=== PATIENT | female | born 1985 | race Caucasian/White ===

== ENCOUNTER 2018-02-15 01:02 | Inpatient (IN) | payer OTHER ==
[2018-02-15] MEDS ORDERED: ONDANSETRON 4 MG/2 ML VIAL IVPUSH ONE (01:29)
[2018-02-15] MEDS ORDERED: morphine CARPU-JECT 4 MG/1 ML DISP.SYRIN IVPUSH ONE ×2 (01:29→02:09)
[2018-02-15] MEDS ORDERED: SODIUM CHLORIDE 1,000 ML IV STA (01:29)
--- NOTE | 2018-02-15 01:29 | PDOC ---
History of Present Illness - General History Source: Patient Exam Limitations: No Limitations - History of Present Illness Initial Comments: 02/15/18 01:37 The patient is a 33-year-old female with no significant past medical presents to the emergency department with abdominal pain. The patient presents with a sudden onset of L. lower abdominal pain for the past 2 hours. The patient reports the pain radiates to the L. lower back, denies any modifying improving factor. The patient states she was watching TV when the pain presented. The patient reports she initially thought it was gas and went to the bathroom. 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 The patient reports associated symptoms of nausea and lightheadedness. Allergies: Penicillins. Social history: History of smoking. No past or present use of alcohol or recreational drug use. Surgical history: Double hernia repair. PCP: Kris Peterson <Kelsie Ivan - Last Filed: 02/15/18 01:37> <Elsa Mcfarland - Last Filed: 02/15/18 19:35> <Josie Moreno - Last Filed: 02/17/18 20:25> - General Chief Complaint: Pain Stated Complaint: ABD PAIN Time Seen by Provider: 02/15/18 01:26 Past History <Kelsie Ivan - Last Filed: 02/15/18 01:37> <Elsa Mcfarland - Last Filed: 02/15/18 19:35> - Past Medical History Anemia: No Asthma: No Cancer: No Cardiac Disorders: No - Surgical History Abdominal Surgery: Yes (DOUBLE HERNIA REPAIR) - Suicide/Smoking/Psychosocial Hx Smoking Status: Yes Smoking History: Never smoked Have you smoked in the past 12 months: No Number of Cigarettes Smoked Daily: 20 Information on smoking cessation initiated: No Hx Alcohol Use: No Drug/Substance Use Hx: No <Josie Moreno - Last Filed: 02/17/18 20:25> - Past Medical History Allergies/Adverse Reactions: Allergies Allergy/AdvReac Type Severity Reaction Status Date / Time Penicillins Allergy Severe Difficulty Verified 02/15/18 01:23 Breathing Home Medications: Ambulatory Orders NK [No Known Home Medication] 02/15/18 Review of Systems - Review of Systems Comments:: 02/15/18 01:37 GENERAL/CONSTITUTIONAL: No fever or chills. No weakness. HEAD, EYES, EARS, NOSE AND THROAT: No change in vision. No ear pain or discharge. No sore throat. CARDIOVASCULAR: No chest pain or shortness of breath. RESPIRATORY: No cough, wheezing, or hemoptysis. GASTROINTESTINAL: (+) L. lower abd pain. (+) nausea and vomiting. No diarrhea or constipation. GENITOURINARY: No dysuria, frequency, or change in urination. MUSCULOSKELETAL: (+) L. lower back pain. No joint or muscle swelling or pain. No neck pain. SKIN: No rash NEUROLOGIC: No headache, vertigo, loss of consciousness, or change in strength/ sensation. ENDOCRINE: No increased thirst. No abnormal weight change. HEMATOLOGIC/LYMPHATIC: No anemia, easy bleeding, or history of blood clots. ALLERGIC/IMMUNOLOGIC: No hives or skin allergy. <Kelsie Ivan - Last Filed: 02/15/18 01:37> *Physical Exam - Vital Signs Last Vital Signs Temp Pulse Resp BP Pulse Ox 98.6 F 89 18 108/58 L 100 02/15/18 01:19 02/15/18 01:19 02/15/18 01:19 02/15/18 01:19 02/15/18 01:19 <Kelsie Ivan - Last Filed: 02/15/18 01:37> - Vital Signs Last Vital Signs Temp Pulse Resp BP Pulse Ox 98.6 F 89 18 108/58 L 100 02/15/18 01:19 02/15/18 01:19 02/15/18 01:19 02/15/18 01:19 02/15/18 01:19 <Elsa Mcfarland - Last Filed: 02/15/18 19:35> - Vital Signs Last Vital Signs Temp Pulse Resp BP Pulse Ox 98.6 F 89 18 108/58 L 100 02/15/18 01:19 02/15/18 01:19 02/15/18 01:19 02/15/18 01:19 02/15/18 01:19 - Physical Exam Comments: GENERAL: Awake, alert, and fully oriented. Appears in obvious pain. HEAD: No signs of trauma EYES: PERRLA, EOMI, sclera anicteric, conjunctiva clear ENT: Auricles normal inspection, hearing grossly normal, nares patent, oropharynx clear without exudates. Dry mucosa NECK: Normal ROM, supple, no lymphadenopathy, JVD, or masses LUNGS: Breath sounds equal, clear to auscultation bilaterally. No wheezes, and no crackles HEART: Regular rate and rhythm, normal S1 and S2, no murmurs, rubs or gallops ABDOMEN: Soft, +LLQ tenderness, normoactive bowel sounds. +Guarding, no rebound. No masses EXTREMITIES: Normal range of motion, no edema. No clubbing or cyanosis. No cords, erythema, or tenderness NEUROLOGICAL: Cranial nerves II through XII grossly intact. Normal speech, normal gait SKIN: Warm, Dry, normal turgor, no rashes or lesions noted. <Josie Moreno - Last Filed: 02/17/18 20:25> ED Treatment Course - LABORATORY CBC & Chemistry Diagram: 02/15/18 10:00 02/15/18 10:00 - ADDITIONAL ORDERS Additional order review: Laboratory Results 02/15/18 02/15/18 02/15/18 01:16 01:16 01:16 Sodium 136 Potassium 3.3 L Chloride 104 Carbon Dioxide 23 Anion Gap 9 BUN 17 Creatinine 0.8 Creat Clearance w eGFR > 60 Random Glucose 117 H Lactic Acid 1.9 Calcium 9.3 Total Bilirubin 0.5 AST 23 ALT 22 Alkaline Phosphatase 70 Total Protein 7.3 Albumin 4.2 Lipase 117 Serum , Qual Negative 02/15/18 01:16 RBC 4.37 MCV 86.3 MCHC 34.6 RDW 12.6 MPV 9.3 Neutrophils % 63.2 Lymphocytes % 30.7 D Monocytes % 5.3 Eosinophils % 0.4 Basophils % 0.4 - RADIOLOGY Radiology Studies Ordered: Category Date Time Status SPIRAL- RENAL-STONE CT [CT] Stat CT Scan 02/15/18 02:29 Taken PELVIC / BLADDER US [US] Stat Ultrasound 02/15/18 02:12 Taken TRANSVAGINAL ULTRASOUND US [US] Stat Ultrasound 02/15/18 02:51 Taken - Medications Given in the ED: ED Medications Discontinued Medications Generic Name Dose Route Start Last Admin Trade Name Freq PRN Reason Stop Dose Admin Sodium Chloride 1,000 mls @ 1,000 mls/hr 02/15/18 01:29 02/15/18 01:57 Normal Saline - IV 02/15/18 02:28 1,000 mls/hr ASDIR STA Administration Morphine Sulfate 4 mg 02/15/18 01:29 02/15/18 01:39 Morphine Injection - IVPUSH 02/15/18 01:30 4 mg ONCE ONE Administration Morphine Sulfate 4 mg 02/15/18 02:09 02/15/18 02:16 Morphine Injection - IVPUSH 02/15/18 02:10 4 mg ONCE ONE Administration Ondansetron HCl 4 mg 02/15/18 01:29 02/15/18 01:39 Zofran Injection IVPUSH 02/15/18 01:30 4 mg ONCE ONE Administration <McfarlandElsa - Last Filed: 02/15/18 19:35> - LABORATORY CBC & Chemistry Diagram: 02/15/18 10:00 02/15/18 10:00 <Josie Moreno - Last Filed: 02/17/18 20:25> Medical Decision Making - Medical Decision Making 02/15/18 03:33 I received pt on signout. She will be admitted for obstructing stone. Patient Name: NOEMÍ JUSTIN THIS IS A PRELIMINARY REPORT FROM [facility] REPRESENTATIVE DATE OF SERVICE: 2018-02-15 02:38:15 IMAGES: [id number] EXAM: CT abdomen and pelvis without IV contrast. Clinical indication: Right-sided flank pain. Rule out kidney stone. Technique: Axial IV contrast-enhanced CT images of the abdomen and pelvis were obtained followed by coronal and sagittal reformats. Findings: Visualized lower thorax are within normal limits. There is no free intra-abdominal gas or fluid. The liver, gallbladder, adrenals, pancreas, and spleen are normal. There is mild left-sided hydronephrosis and hydroureter with a 0.5 cm stone obstructing distal left ureter. There may be a tiny 1 mm left-sided nonobstructive renal calculus. The bilateral kidneys are otherwise unremarkable, given the limitations of an unenhanced CT. There are no enlarged abdominal or pelvic lymph nodes, by size criteria. The urinary bladder is unremarkable. There is an IUD which appears appropriately situated within the uterus. The pelvic organs are otherwise grossly unremarkable, given limitations of CT for evaluating them. The appendix is not identified with certainty which could be due to obscuration by adjacent loops of bowel or surgical absence. The remainder the bowel is unremarkable. The visualized bony structures are within normal limits for the patient's age. Impression: 1. 0.5 cm stone obstructing the distal left ureter causing left-sided hydronephrosis. 2. Tiny 1 mm left-sided nonobstructive renal calculus. 3. Otherwise, unremarkable CT of the abdomen and pelvis, given the limitations of a nonenhanced CT. 02/15/18 03:34 Pt admitted to the hospitalist for her ureteral tract obstruction. UA still pending. Hospitalist is aware <Elsa Mcfarland - Last Filed: 02/15/18 19:35> - Medical Decision Making 02/14/18 02:[address] Mcfarland at shift change. Recently arrived to ED c/o severe LLQ abd pain. Significantly tender (required pain medication before I could get a good exam), appears dehydrated. IV fluid hanging. Received morphine x2 doses. She has Mirena IUD, so ovarian cyst less likely, GI or urinary tract pathology more likely. Awaiting CT a/p. <Josie Moreno - Last Filed: 02/17/18 20:25> *DC/Admit/Observation/Transfer <Kelsie Ivan - Last Filed: 02/15/18 01:37> - Discharge Dispostion Decision to Admit order: Yes <Elsa Mcfarland - Last Filed: 02/15/18 19:35> <Josie Moreno - Last Filed: 02/17/18 20:25> Diagnosis at time of Disposition: Urinary tract obstruction by kidney stone, Renal colic on left side - Discharge Dispostion Disposition: HOME Condition at time of disposition: Stable
[2018-02-15] MEDS ORDERED: morphine SULFATE 4 MG/ML VIAL ONE ×2 (01:30→02:13)
[2018-02-15] MEDS ORDERED: ONDANSETRON 4 MG/2 ML VIAL ONE (01:30)
[2018-02-15 02:03] LABS: BASO % 0.4 % (0-2.0); EOS % 0.4 % (0-4.5); HEMATOCRIT 37.7 % (32.4-45.2); HEMOGLOBIN 13.1 GM/dL (10.7-15.3); LYMPH % 30.7 % (8-40); MCH 29.8 pg (25.7-33.7); MCHC 34.6 g/dl (32.0-36.0); MEAN CELL VOLUME 86.3 fl (80-96); MEAN PLT VOLUME 9.3 fl (7.5-11.1); MONO % 5.3 % (3.8-10.2); NEUT % 63.2 % (42.8-82.8); PLATELET COUNT 174 K/MM3 (134-434); RBC 4.37 M/mm3 (3.60-5.2); RDW 12.6 % (11.6-15.6); WHITE BLOOD COUNT 9.6 K/mm3 (4.0-10.0)
[2018-02-15 02:24] LABS: ALBUMIN 4.2 g/dl (3.4-5.0); ALK PHOS 70 U/L (45-117); ANION GAP 9 MMOL/L (8-16); BILIRUBIN,TOTAL 0.5 mg/dL (0.2-1); BLOOD UREA NITROGEN 17 mg/dL (7-18); CALCIUM 9.3 mg/dL (8.5-10.1); CHLORIDE 104 mmol/L (98-107); CO2 23 mmol/L (21-32); CREATININE 0.8 mg/dL (0.55-1.3); GLUCOSE,RANDOM 117 mg/dL (74-106); LIPASE 117 U/L (73-393); POTASSIUM 3.3 mmol/L (3.5-5.1); SGOT/AST 23 U/L (15-37); SGPT/ALT 22 U/L (13-61); SODIUM 136 mmol/L (136-145); TOT PROT 7.3 g/dl (6.4-8.2)
[2018-02-15] MEDS ORDERED: SODIUM CHLORIDE 0.9% 500 ML INFUS.BAG IV ONE (02:28)
[2018-02-15] MEDS ORDERED: POTASSIUM CHLORIDE TABS 20 MEQ TABLET.ER (FP) PO ONE ×2 (03:10→03:39)
[2018-02-15] MEDS ORDERED: KETOROLAC TROMETHAMINE 30 MG/1 ML VIAL IVPUSH ONE (03:33)
[2018-02-15] MEDS ORDERED: KETOROLAC TROMETHAMINE 30 MG/1 ML VIAL ONE ×2 (03:39→09:15)
[2018-02-15 04:02] LABS: URINE APPEARANCE SLCLOUDY; URINE BILIRUBIN NEGATIVE (<2.0 mg/dL); URINE COLOR YELLOW; URINE GLUCOSE (UA) NEGATIVE (NEGATIVE); URINE KETONE 2+ (NEGATIVE); URINE LEUK ESTERASE NEGATIVE (NEGATIVE); URINE NITRITE NEGATIVE (NEGATIVE); URINE PROTEIN NEGATIVE (NEGATIVE); URINE UROBILINOGEN NEGATIVE mg/dL (0.2-1.0)
[2018-02-15 04:07] LABS: EPI CELLS FEW /HPF (FEW); URINE MUCUS RARE
--- NOTE | 2018-02-15 04:07 | PN ---
Teaching Attending Note Name of Resident: Stefan Costello ATTENDING PHYSICIAN STATEMENT I saw and evaluated the patient. I reviewed the resident's note and discussed the case with the resident. I agree with the resident's findings and plan as documented. SUBJECTIVE: Patient is a 33 year old woman with history of penicillin allergy, double hernia repair, hemorrhoidectomy and tobacco use who presents to the ER with abdominal pain for 2 hours. He says pain was of a sudden onset in the LLQ. The patient reports the pain radiates to the left lower back with no aggravating or relieving factor. The patient states she was watching TV when the pain started and she initially thought it was gas and went to the bathroom. She had an episode of bilious, non-bloody vomiting prior to arrival. The patient reports associated symptoms of nausea and lightheadedness. OBJECTIVE: Alert Vital Signs Period Temp Pulse Resp BP Sys/Marquis Pulse Ox Last 24 Hr 98.6 F 89 18 108/58 100 HEENT: No Jaundice, eye redness or discharge, PERRLA, EOMI. Normocephalic, atraumatic. External ears are normal and hearing is grossly intact. No nasal discharge. Neck: Supple, nontender. No palpable adenopathy or thyromegaly. No JVD Chest: Good effort. Clear to auscultation and percussion. Heart: Regular. No S3, rub or murmur Abdomen: Not distended, soft, LLQ tenderness and no HSM. No rebound or guarding. Normoactive bowel sounds. Ext: Peripheral pulses intact. No leg edema. Skin: Warm and dry. No petechiae, rash or ecchymosis. Neuro: Alert. Oriented x3. CN 2-12 grossly intact. Sensation grossly intact in all four extremities and DTR are symmetric. Home Medications Medication Instructions Recorded NK [No Known Home Medication] 02/15/18 Home Medications Medication Instructions Recorded NK [No Known Home Medication] 02/15/18 Abnormal Lab Results 02/15/18 01:16 Potassium 3.3 L Random Glucose 117 H ASSESSMENT AND PLAN: 1. Left ureteral kidney stone - Has associated hydronephrosis. Will continue IV NS, strain her urine, give flomax and toradol. Consult urology and keep her NPO. Refer to nephrology for outpatient work up to search for stone disease risk factor. Hypokalemia likely partly due to vomiting. Check Mg+ and give IV KCL. 2. Tobacco Use We will provide patient all the necessary assistance to facilitate smoking cessation and prescribe Nicotine patch. 3. DVT prophylaxis - SCD, TEDs and early ambulation. 4. Advance directives - Full code
[2018-02-15] MEDS ORDERED: SODIUM CHLORIDE 1,000 ML with POTASSIUM CHLORIDE 10 MEQ IVPB SCH (04:30)
[2018-02-15] MEDS ORDERED: TAMSULOSIN HCL 0.4 MG CAP.ER.24H (FP) PO ONE (04:32)
--- NOTE | 2018-02-15 04:42 | HP ---
CHIEF COMPLAINT: abd pain PCP: Dr. Garcia HISTORY OF PRESENT ILLNESS: Pt is a 33 y/o F with no PMH who presents to ED with complaint of sudden L lower abdominal pain. Pt states she had a simlilar pain 1 week ago but less severee and much shorter duration of 5 min. On this episode, pt states she was home and suddenly had this pain in her L lower abdomen prompting her ED visit. Pain was severe and throbbing. Pt is no longer in pain. No other complaints. ER course was notable for: (1) K 3.3, UA with blood, TVUS neg, CT with 0.5 cm stone (2) (3) Recent Travel: denies PAST MEDICAL HISTORY: denies PAST SURGICAL HISTORY: hernia repair x 2, hemorrhoidectomy in July Social History: Smoking: social Alcohol: denies Drugs: denies Family History: noncontributory Allergies Penicillins Allergy (Severe, Verified 02/15/18 01:23) Difficulty Breathing HOME MEDICATIONS: Home Medications Medication Instructions Recorded NK [No Known Home Medication] 02/15/18 REVIEW OF SYSTEMS CONSTITUTIONAL: Absent: fever, chills, diaphoresis, generalized weakness, malaise, loss of appetite, weight change HEENT: Absent: rhinorrhea, nasal congestion, throat pain, throat swelling, difficulty swallowing, mouth swelling, ear pain, eye pain, visual changes CARDIOVASCULAR: Absent: chest pain, syncope, palpitations, irregular heart rate, lightheadedness , peripheral edema RESPIRATORY: Absent: cough, shortness of breath, dyspnea with exertion, orthopnea, wheezing, stridor, hemoptysis GASTROINTESTINAL: abdominal pain Absent:, abdominal distension, nausea, vomiting, diarrhea, constipation, melena , hematochezia GENITOURINARY: Absent: dysuria, frequency, urgency, hesitancy, hematuria, flank pain, genital pain MUSCULOSKELETAL: Absent: myalgia, arthralgia, joint swelling, back pain, neck pain SKIN: Absent: rash, itching, pallor HEMATOLOGIC/IMMUNOLOGIC: Absent: easy bleeding, easy bruising, lymphadenopathy, frequent infections ENDOCRINE: Absent: unexplained weight gain, unexplained weight loss, heat intolerance, cold intolerance NEUROLOGIC: Absent: headache, focal weakness or paresthesias, dizziness, unsteady gait, seizure, mental status changes, bladder or bowel incontinence PSYCHIATRIC: Absent: anxiety, depression, suicidal or homicidal ideation, hallucinations. PHYSICAL EXAMINATION Vital Signs - 24 hr 02/15/18 01:19 Temperature 98.6 F Pulse Rate 89 Respiratory 18 Rate Blood Pressure 108/58 L O2 Sat by Pulse 100 Oximetry (%) GENERAL: Awake, alert, and fully oriented, in no acute distress. HEAD: Normal with no signs of trauma. EYES: Pupils equal, round and reactive to light, extraocular movements intact, sclera anicteric, conjunctiva clear. No lid lag. EARS, NOSE, THROAT: Ears normal, nares patent, oropharynx clear without exudates. Moist mucous membranes. NECK: Normal range of motion, supple without lymphadenopathy, JVD, or masses. LUNGS: Breath sounds equal, clear to auscultation bilaterally. No wheezes, and no crackles. No accessory muscle use. HEART: Regular rate and rhythm, normal S1 and S2 without murmur, rub or gallop. ABDOMEN: Soft, nontender, not distended, normoactive bowel sounds, no guarding, no rebound, no masses. No hepatomegaly or splenomegaly. MUSCULOSKELETAL: Normal range of motion at all joints. No bony deformities or tenderness. No CVA tenderness. UPPER EXTREMITIES: 2+ pulses, warm, well-perfused. No cyanosis. No clubbing. No peripheral edema. LOWER EXTREMITIES: 2+ pulses, warm, well-perfused. No calf tenderness. No peripheral edema. NEUROLOGICAL: Cranial nerves II-XII intact. Normal speech. Normal gait. PSYCHIATRIC: Cooperative. Good eye contact. Appropriate mood and affect. SKIN: Warm, dry, normal turgor, no rashes or lesions noted, normal capillary refill. Laboratory Results - last 24 hr 02/15/18 02/15/18 02/15/18 01:16 01:16 01:16 WBC 9.6 RBC 4.37 Hgb 13.1 Hct 37.7 MCV 86.3 MCH 29.8 MCHC 34.6 RDW 12.6 Plt Count 174 D MPV 9.3 Absolute Neuts (auto) 6.1 Neutrophils % 63.2 Lymphocytes % 30.7 D Monocytes % 5.3 Eosinophils % 0.4 Basophils % 0.4 Nucleated RBC % 0 Sodium 136 Potassium 3.3 L Chloride 104 Carbon Dioxide 23 Anion Gap 9 BUN 17 Creatinine 0.8 Creat Clearance w eGFR > 60 Random Glucose 117 H Lactic Acid Calcium 9.3 Total Bilirubin 0.5 AST 23 ALT 22 Alkaline Phosphatase 70 Total Protein 7.3 Albumin 4.2 Lipase 117 Serum , Qual Negative Urine Color Urine Appearance Urine pH Ur Specific Roach Urine Protein Urine Glucose (UA) Urine Ketones Urine Blood Urine Nitrite Urine Bilirubin Urine Urobilinogen Ur Leukocyte Esterase Urine WBC (Auto) Urine RBC (Auto) Ur Epithelial Cells Urine Mucus 02/15/18 02/15/18 01:16 03:50 WBC RBC Hgb Hct MCV MCH MCHC RDW Plt Count MPV Absolute Neuts (auto) Neutrophils % Lymphocytes % Monocytes % Eosinophils % Basophils % Nucleated RBC % Sodium Potassium Chloride Carbon Dioxide Anion Gap BUN Creatinine Creat Clearance w eGFR Random Glucose Lactic Acid 1.9 Calcium Total Bilirubin AST ALT Alkaline Phosphatase Total Protein Albumin Lipase Serum , Qual Urine Color Yellow Urine Appearance Slcloudy Urine pH 7.0 D Ur Specific Roach 1.019 Urine Protein Negative Urine Glucose (UA) Negative Urine Ketones 2+ H Urine Blood 1+ H Urine Nitrite Negative Urine Bilirubin Negative Urine Urobilinogen Negative Ur Leukocyte Esterase Negative Urine WBC (Auto) 1 Urine RBC (Auto) 9 Ur Epithelial Cells Few Urine Mucus Rare ASSESSMENT/PLAN: Pt is a 33 y/o F with no PMH who presents with abdominal pain. Pt is being put on obs for obstructing renal stones. #Renal stone / hydronephrosis - flomax -NS ( with KCl) -Urology -Toradol -strain urine #FEN -on fluids with K -lytes wnl Nutrition: full diet #PPx -hep #Dispo -MedSurg Obs Stefan Costello MD PGY-2 IM Visit type - Emergency Visit Emergency Visit: Yes Care time: The patient presented to the Emergency Department on the above date and was hospitalized for further evaluation of their emergent condition. - New Patient This patient is new to me today: Yes Date on this admission: 02/15/18 - Critical Care Critical Care patient: No Hospitalist Screening - Colonoscopy Questionnaire Colonoscopy Questionnaire: Colonoscopy Questionnaire - Patient: 50 - 75 years old and never had a screening colonoscopy: Unknown History of colon or rectal polyps, or CA: Unknown History of IBD, Crohn's disease or UC: Unknown History of abdominal radiation therapy as a child: Unknown - Relative: 1 with colon or rectal CA, or polyps at age 60 or younger: Unknown Colon or rectal CA diagnosed at age 45 or younger: Unknown Multiple relatives with colon or rectal CA: Unknown - Outcome: Screening Result: Negative Screen
[2018-02-15] MEDS ORDERED: TAMSULOSIN HCL 0.4 MG CAP.ER.24H (FP) ONE (06:33)
[2018-02-15] MEDS ORDERED: ENOXAPARIN NA (PORCINE) 40 MG/0.4 ML DISP.SYRIN SQ ONE (09:16)
[2018-02-15] MEDS: KETOROLAC TROMETHAMINE 30 MG/1 ML VIAL IVPUSH SCH ×2 (09:17→17:50)
[2018-02-15] MEDS: ENOXAPARIN NA (PORCINE) 40 MG/0.4 ML DISP.SYRIN SQ SCH (09:17)
[2018-02-15 10:15] LABS: BASO % 0.3 % (0-2.0); EOS % 0.1 % (0-4.5); HEMATOCRIT 35.3 % (32.4-45.2); LYMPH % 12.5 % (8-40); MCH 29.4 pg (25.7-33.7); MCHC 33.9 g/dl (32.0-36.0); MEAN CELL VOLUME 86.7 fl (80-96); MEAN PLT VOLUME 8.9 fl (7.5-11.1); MONO % 7.1 % (3.8-10.2); PLATELET COUNT 138 K/MM3 (134-434); RBC 4.07 M/mm3 (3.60-5.2); RDW 12.4 % (11.6-15.6); WHITE BLOOD COUNT 8.2 K/mm3 (4.0-10.0)
[2018-02-15 11:38] LABS: ALBUMIN 3.5 g/dl (3.4-5.0); ALK PHOS 57 U/L (45-117); ANION GAP 7 MMOL/L (8-16); BILIRUBIN,TOTAL 1.1 mg/dL (0.2-1); BLOOD UREA NITROGEN 18 mg/dL (7-18); CALCIUM 8.8 mg/dL (8.5-10.1); CHLORIDE 110 mmol/L (98-107); CO2 24 mmol/L (21-32); CREATININE 0.8 mg/dL (0.55-1.3); GLUCOSE,RANDOM 115 mg/dL (74-106); POTASSIUM 4.7 mmol/L (3.5-5.1); SGOT/AST 20 U/L (15-37); SGPT/ALT 20 U/L (13-61); SODIUM 142 mmol/L (136-145); TOT PROT 6.1 g/dl (6.4-8.2)
--- NOTE | 2018-02-15 13:57 | HOSP ---
Subjective - Review of Symptoms Subjective: c/o L flank tenderness that has improved since arrival. states she has relief with pain medication. denies Cp, SOB, fever, chills, N/V/C/D. no recent change to diet. no medications, OTC or herbal supplements. No family hx of kidney stones Current Medications Generic Name Dose Route Start Last Admin Trade Name Johnna PRN Reason Stop Dose Admin Enoxaparin Sodium 40 mg 02/15/18 10:00 02/15/18 09:17 Lovenox - SQ 40 mg DAILY JOSEE Administration Potassium Chloride 10 meq/ 1,005 mls @ 100 mls/hr 02/15/18 04:30 02/15/18 06: 53 Sodium Chloride IVPB 100 mls/hr ASDIR JOSEE Administration Ketorolac Tromethamine 30 mg 02/15/18 10:00 02/15/18 09:17 Toradol Injection - IVPUSH 02/20/18 09:59 30 mg Q8H-IV JOSEE Administration Last Vital Signs Temp Pulse Resp BP Pulse Ox 98.0 F 60 18 98/52 L 100 02/15/18 13:21 02/15/18 13:21 02/15/18 13:21 02/15/18 13:21 02/15/18 13:21 General NAD Abdomen L flank tenderness soft no suprapubic pain A/P 33yo F with no PMH presented with abdominal pain radiating to the back and found to have L UVJ renal stone 1. Nephrolithasis with hydronephrosis- 5mm L UVJ renal stone with mild hydronehprosis. will likely require intervention. Urology consulted. cont high dose IVF, toradol and zofran prn. 2. Hypokalemia- resolved 3. Continuous nicotine dependence-counselled on cessation. patch offered 4. DVT ppx- Lovenox Physical Examination Vital Signs: Vital Signs Temperature 98.0 F 02/15/18 13:21 Pulse Rate 60 02/15/18 13:21 Respiratory Rate 18 02/15/18 13:21 Blood Pressure 98/52 L 02/15/18 13:21 O2 Sat by Pulse Oximetry (%) 100 02/15/18 13:21 Labs: CBC, BMP 02/15/18 10:00 02/15/18 10:00
[2018-02-15] MEDS: SODIUM CHLORIDE 1,000 ML IV SCH (15:48)
[2018-02-15] MEDS: ACETAMINOPHEN 325 MG TABLET (FP) PO PRN (15:48)
[2018-02-15 16:20] VITALS: BMI 19.9
--- NOTE | 2018-02-15 16:51 | CON.GU ---
Consult Consult Specialty:: Urology Reason for Consultation:: Left renal colic - History of Present Illness History of Present Illness: 33 yo female w left flank pain and nausea on adimission No f/c/ns. no prior hx of stones voiding well - Alcohol/Substance Use Hx Alcohol Use: No - Smoking History Smoking history: Former smoker Have you smoked in the past 12 months: No Aproximately how many cigarettes per day: 20 If you are a former smoker, when did you quit?: 09/28/2012 Home Medications - Allergies Allergies/Adverse Reactions: Allergies Allergy/AdvReac Type Severity Reaction Status Date / Time Penicillins Allergy Severe Difficulty Verified 02/15/18 01:23 Breathing - Home Medications Home Medications: Ambulatory Orders NK [No Known Home Medication] 02/15/18 Physical Exam- Vital Signs: Vital Signs Temperature 97.9 F 02/15/18 16:00 Pulse Rate 61 02/15/18 16:00 Respiratory Rate 18 02/15/18 16:00 Blood Pressure 108/60 02/15/18 16:00 O2 Sat by Pulse Oximetry (%) 100 02/15/18 16:00 Labs: CBC, BMP 02/15/18 10:00 02/15/18 10:00 Imaging - Results Cat Scan: Report Reviewed Problem List - Problems (1) Renal colic on left side Assessment/Plan: Left 5 mm ureteral stone No signs of SIRS Currently no pain will give 2 days to pass if not then lithotripsy Discussed plan w pt Code(s): N23 - UNSPECIFIED RENAL COLIC
[2018-02-15] MEDS ORDERED: DOCUSATE SODIUM 100 MG CAPSULE (FP) PO ONE (22:00)
[2018-02-16] MEDS: SODIUM CHLORIDE 1,000 ML IV SCH (01:40)
[2018-02-16] MEDS: KETOROLAC TROMETHAMINE 30 MG/1 ML VIAL IVPUSH SCH ×2 (01:40→09:21)
[2018-02-16] MEDS ORDERED: SODIUM CHLORIDE 1,000 ML IV SCH (07:50)
[2018-02-16 07:56] LABS: MAGNESIUM 1.8 mg/dL (1.8-2.4); PHOSPHOROUS 2.8 mg/dL (2.5-4.9)
[2018-02-16] MEDS: ENOXAPARIN NA (PORCINE) 40 MG/0.4 ML DISP.SYRIN SQ SCH (09:22)
--- NOTE | 2018-02-16 10:16 | PN ---
Teaching Attending Note Name of Resident: Marti Dyson ATTENDING PHYSICIAN STATEMENT I saw and evaluated the patient. I reviewed the resident's note and discussed the case with the resident. I agree with the resident's findings and plan as documented. SUBJECTIVE:pain has now moved to the groin area. tolerating diet. pain controlled with medication. denies Cp, SOB, fever, chills, N/V/C/D OBJECTIVE: Last Vital Signs Temp Pulse Resp BP Pulse Ox 98.4 F 67 20 101/60 100 02/16/18 05:38 02/16/18 05:38 02/16/18 05:38 02/16/18 05:38 02/16/18 05:00 General NAD Abdomen + suprapubic pain, soft ND no rebound or guarding A/P 33yo F with no PMH presented with abdominal pain radiating to the back and found to have L UVJ renal stone 1. Nephrolithasis with hydronephrosis- 5mm L UVJ renal stone with mild hydronehprosis. plan is to continue hydration. if does not pass in next 24H will liekly require intervention. cont current management. URology f/u. strain urine. toradol and high dose IVF 2. Hypokalemia- resolved 3. Continuous nicotine dependence-counselled on cessation. patch offered 4. DVT ppx- Lovenox
[2018-02-16] MEDS: ACETAMINOPHEN 325 MG TABLET (FP) PO PRN (10:57)
[2018-02-16] MEDS ORDERED: MAGNESIUM OXIDE 400 MG TABLET (FP) PO ONE (12:47)
[2018-02-16] MEDS ORDERED: NAPH,MB-DB/K PH,MBDB POWDER PACKET PO ONE (12:48)
[2018-02-16 15:22] VITALS: BP 111/63; PULSE 64; TEMP 98.3
--- NOTE | 2018-02-16 19:09 | DS ---
Physical Exam: SUBJECTIVE: Patient seen and examined by me at bedside. Patient reports her pain was now radiating to the left groin and left lower abdomen. However, patient reports pain is well controlled with toradol. Patient tolerated breakfast and lunch. Otherwise, patient denies fever, chills, nausea, vomiting , abdominal pain, chest pain, palpitations, shortness of breath, dizziness. OBJECTIVE: Vital Signs Period Temp Pulse Resp BP Sys/Marquis Pulse Ox Last 24 Hr 98.3 F-99 F 60-68 18-20 98-111/60-74 100-100 PHYSICAL EXAM GENERAL: The patient is awake, alert, and fully oriented, in no acute distress. EYES: PERRL, extraocular movements intact, sclera anicteric, conjunctiva clear. ENT: Oropharynx clear without exudates, moist mucous membranes. LUNGS: Breath sounds equal, clear to auscultation bilaterally, no wheezes, no crackles, no accessory muscle use. HEART: Regular rate and rhythm, S1, S2 without murmur, rub or gallop. ABDOMEN: Soft, mild tenderness upon palpation of LLQ and left flank pain, nondistended, normoactive bowel sounds EXTREMITIES: No edema. NEUROLOGICAL: No focal deficits LABS Laboratory Results - last 24 hr 02/16/18 05:45 Phosphorus 2.8 Magnesium 1.8 Urine Test Results Urine Color Yellow 02/15/18 03:50 Urine Appearance Slcloudy 02/15/18 03:50 Urine pH 7.0 (5.0-8.0) D 02/15/18 03:50 Ur Specific [place] 1.019 (1.001-1.035) 02/15/18 03:50 Urine Protein Negative (NEGATIVE) 02/15/18 03:50 Urine Glucose (UA) Negative (NEGATIVE) 02/15/18 03:50 Urine Ketones 2+ (NEGATIVE) H 02/15/18 03:50 Urine Blood 1+ (NEGATIVE) H 02/15/18 03:50 Urine Nitrite Negative (NEGATIVE) 02/15/18 03:50 Urine Bilirubin Negative (<2.0 mg/dL) 02/15/18 03:50 Ur Leukocyte Esterase Negative (NEGATIVE) 02/15/18 03:50 Ur Epithelial Cells Few /HPF (FEW) 02/15/18 03:50 Urine Mucus Rare 02/15/18 03:50 Microbiology 02/15/18 03:50 Urine - Urine Clean Catch Urine Culture - Final NO GROWTH OBTAINED IMAGES Pelvic/Bladder U/S (02/15/18): IUD well seated within endometrial cavity, otherwise, normal pelvic sonogram with no evidence of ovarian torsion Abdominal/Pelvic CT (02/15/18): 5mm left UVJ calculus with mild hydronephrosis PRE-HOSPITAL COURSE Patient is a 33 year old female with no PMHx who presented with sudden left lower abdominal pain and CT imaging revealed 0.5cm obstructing renal stone with hydronephrosis. Patient was admitted to medicine service for further monitoring and management. HOSPITAL COURSE: Patient throughout hospitalization was treated with Flomax, aggressive IV fluids , and pain medications with Toradol. Patient had adequate pain control and urine output. She was seen by urologist on 02/15/18 and recommended that patient continues to have aggressive IV fluids and if the stone does not pass within two days, they would reconsider surgical intervention. Patient today passed stone and sent out for analysis. Reports adequate pain control and tolerated PO intake. Patient was stable for discharge and recommended to follow up with urologist and PCP within two weeks to discuss further workup for what caused the kidney stone. Date of Admission:02/16/18 Date of Discharge: 02/16/18 Minutes to complete discharge: 45 Discharge Summary Reason For Visit: RENAL COLIC ON LEFT SIDE Condition: Stable - Instructions Diet, Activity, Other Instructions: RECOMMENDATIONS: -You were admitted because of a kidney stone that caused swelling of your kidneys. You were given IV hydration with fluids, medication to help facilitate passing of the kidney stone and you were seen by a Urologist. You were able to pass the stone while at the hospital and did not require further intervention -We recommend to cut down or stop alcohol intake, red meat, seafood until the cause of stones is identified. -We recommend you stay hydrated with plenty of fluids. -If you experience new or worsening symptoms such as severe abdominal pain, please return to the Emergency Department. MEDICATIONS: -You make take Motrin for any further pain. FOLLOW UP's: -Please follow up with your primary care physician within 1-2 weeks. Follow up the type of stone you had and discuss with them if you need further workup for what caused the kidney stone. Referrals: Bhaskar Masterson MD., [Staff Physician] - Kris Garcia [Non Staff, Medical] - Disposition: HOME - Home Medications Comprehensive Discharge Medication List: Ambulatory Orders NK [No Known Home Medication] 02/15/18 This patient is new to me today: Yes Date on this admission: 02/16/18 Emergency Visit: Yes ED Registration Date: 02/16/18 Care time: The patient presented to the Emergency Department on the above date and was hospitalized for further evaluation of their emergent condition. Critical Care patient: No - Discharge Referral Referred to [facility] Med P.C.: No
== END 2018-02-16 17:00 | disposition home or self-care (01) | DRG 694 ==
LOC: JER 01:02 → JERBED 03:58 → UNDOADMOB 05:35 → JERBED 05:35 → J5S 14:00 → OBSVTOIN 02-16 11:04
PROVIDERS: ADMIT Internal Medicine; ATTEND Internal Medicine
DX: N13.2 Hydronephrosis with renal and ureteral calculous obstruction (principal); Z88.0 Allergy status to penicillin; N13.9 Obstructive and reflux uropathy, unspecified; F17.210 Nicotine dependence, cigarettes, uncomplicated; E87.6 Hypokalemia
CPT/HCPCS: 36415; 74176; 76830-TC; 76856-TC; 80053; 81003; 81015; 82360; 83605; 83690; 83735; 84100; 84703; 85025; 87086; 99284-25; G0378; J7030